=== PATIENT | male | born 1995 | race African-American/Black ===

== ENCOUNTER 2016-08-13 05:01 | Emergency (ER) | payer OTHER ==
[~2016-08-13] VITALS: Ht 177.8 cm; Wt 61.2 kg
[~2016-08-13 05:01] MED LIST: NASONEX0.05 MG/Ac NAS
[2016-08-13 05:27] VITALS: BP 142/77
--- NOTE | 2016-08-13 05:35 | ED GI/GU/ABDOMINAL COMPLAINT ---
History of Present Illness General Chief Complaint: Male Genitourinary Problems Stated Complaint: STD?? Source: patient, old records Exam Limitations: no limitations Vital Signs & Intake/Output Vital Signs & Intake/Output Vital Signs Date Time Temp Pulse Resp B/P Pulse O2 O2 Flow FiO2 Ox Delivery Rate 08/13 0527 64 18 142/77 99 Room Air Allergies Coded Allergies: NO KNOWN ALLERGIES (04/04/14) Reconcile Medications Mometasone Furoate (Nasonex) 0.05 MG/Actuation SPR 2 INH CHI DAILY SINUS CONGESTION Triage Note: PT TO TRIAGE C/C WANTING TO GET AN STD CHECK. PT STATES HE HAD INTERCOURSE WITH SOMEONE 5 DAYS AGO WHO TOLD HIM THEY HAD AN STD. PTS ONLY S/S ARE TINGLING IN "PRIVATE AREA". Triage Nurses Notes Reviewed? yes HPI: Patient presents to the emergency department requesting to be checked for an STD. Patient states that he received a phone call from a girl that he had unprotected sex with and she told him that she had an STD and that he should get evaluated. Patient states that he has a little bit of tingling sensation in his penis when he urinates but there is no discharge and no true pain. Patient denies any fevers or chills. Patient denies any nausea or vomiting. Past History Travel History Traveled to [place] past 21 day No Medical History Any Pertinent Medical History? none Surgical History Surgical History: non-contributory Psychosocial History What is your primary language Ukrainian Tobacco Use: Never used ETOH Use: occasional use Illicit Drug Use: marijuana Family History Hx Contributory? No Review of Systems Review of Systems Constitutional: Reports: no symptoms. Respiratory: Reports: no symptoms. Cardiovascular: Reports: no symptoms. GI: Reports: no symptoms. Genitourinary: Reports: see HPI. Neurological/Psychological: Reports: no symptoms. Physical Exam Physical Exam General Appearance: well developed/nourished, alert, awake, mild distress Eyes: Bilateral: PERRL, EOMI. Neck: normal inspection, supple Respiratory: normal breath sounds, chest non-tender, no respiratory distress, lungs clear Cardiovascular: regular rate/rhythm, normal peripheral pulses Gastrointestinal: normal bowel sounds, soft, non-tender Neurologic/Psych: no motor/sensory deficits, awake, alert, oriented x 3, normal gait, normal mood/affect Core Measures ACS in differential dx? No Severe Sepsis Present: No Septic Shock Present: No Progress Differential Diagnosis: STD, urethritis Plan of Care: Orders Procedure Date/time Status CHLAMYDIA-GC DNA PROBE 08/13 511 Active Current Medications Sig/Marcie Start time Last Medication Dose Stop Time Status Admin Azithromycin 1,000 MG ONCE ONE 08/13 529 UNVr (Zithromax) 08/13 530 Ceftriaxone Sodium 250 MG ONCE ONE 08/13 529 UNir (Rocephin) 08/13 530 Microbiology 08/13 511 URINE ROUT: GC DNA Probe - ORD 08/13 511 URINE ROUT: Chlamydia DNA Probe ([facility]) - ORD Initial ED EKG: none Departure Departure Disposition: HOME OR SELF CARE Condition: Stable Clinical Impression Primary Impression: Urethritis Referrals: PATIENT HAS NO PRIMARY CARE DR (PCP/Family) Additional Instructions: call [phone] anytime tomorrow for results return if symptoms worsen or for any concerns use a condum each time you have sex. Departure Forms: Customer Survey General Discharge Information
== END 2016-08-13 06:10 ==
LOC: ERH 05:01
DX: N34.2 Other urethritis (principal)
CPT/HCPCS: 87491; 87591; 96372; J0696